=== PATIENT | female | born 1960 | race Asian ===

== ENCOUNTER 2023-03-25 08:54 | Outpatient (CLI) | payer OTHER | END 2023-03-25 08:55 | disposition home or self-care (01) | LOC: RAD 08:54 | PROVIDERS: ATTEND Family Medicine | DX: R76.12 Nonspecific reaction to cell mediated immunity measurement of gamma interferon antigen response without active tuberculosis (principal); J98.4 Other disorders of lung | CPT/HCPCS: 71046 ==